=== PATIENT | male | born 1960 | race Caucasian/White ===

== ENCOUNTER → 2016-09-10 | Outpatient (CLI) | payer OTHER ==
[~2016-09-10] MED LIST: ASPIR-LOW81 MG PO; ATORVASTATIN CA80 MG PO; CLOPIDOGREL75 MG PO; KEFLEX500 MG PO; LISINOPRIL5 MG PO; LOPRESSOR25 MG PO; NAPROXEN500 MG PO; NICOTINE PATCH1 EAC2 TD; NITROSTAT0.4 MG SL; PERCOCET 5/31 TABLET PO; SILVADENE20 GM TP
== END | disposition home or self-care (01) ==
LOC: RES 07:46
DX: Z02.71 Encounter for disability determination (principal)
CPT/HCPCS: 94010; 94729; 94760

== ENCOUNTER 2017-02-15 11:54 | Emergency (ER) | payer OTHER ==
[~2017-02-15] VITALS: Ht 180.3 cm; Wt 77.0 kg
[2017-02-15 13:20] LABS: HEMATOCRIT 46.2 % (38.0-50.0); MCH 31.7 PG (29.0-34.0); MCHC 32.7 G/DL (30.0-36.0); MCV 96.9 FL (86-99); MEAN PLAT.VOLUME 9.9 uM^3 (9.0-12.4); PLATELET COUNT 178 K/uL (156-360); RED BLOOD COUNT 4.77 M/uL (4.00-5.50); WHITE BLOOD COUNT 8.4 K/uL (4.1-10.2)
[2017-02-15 13:30] LABS: CHLORIDE 107 mEq/L (99-109); POTASSIUM 3.9 mEq/L (3.7-5.4); SODIUM 141 mEq/L (136-147)
[2017-02-15 13:32] LABS: GLUCOSE 93 mg/dL (70-99)
[2017-02-15 13:33] LABS: ANION GAP 14 MEQ/L (2-14)
[2017-02-15 13:34] LABS: TOTAL BILIRUBIN 0.5 mg/dL (0.0-1.0)
[2017-02-15 13:36] LABS: ALKALINE PHOSPHATASE 88 IU/L (3-129); GFR ESTIMATE (CALCULATED) > 59 mL/min/
[2017-02-15 13:37] LABS: UREA NITROGEN (BUN) 13 mg/dL (9-23)
[2017-02-15] MEDS ORDERED: AUGMENTIN875 MG PO (15:12)
[2017-02-15] MEDS ORDERED: NORCO 5/3251 TABLET PO (15:12)
[2017-02-15 15:25] VITALS: BP 126/77
== END 2017-02-15 15:26 | disposition home or self-care (01) ==
LOC: EME 11:54
PROVIDERS: Physician Assistant
DX: M50.30 Other cervical disc degeneration, unspecified cervical region (principal); J01.00 Acute maxillary sinusitis, unspecified; I10 Essential (primary) hypertension; I25.2 Old myocardial infarction; Z79.82 Long term (current) use of aspirin; F17.200 Nicotine dependence, unspecified, uncomplicated
CPT/HCPCS: 70491; 80053; 85027; 99281; 99284; J3010; J7030

== ENCOUNTER 2017-06-14 17:00 | Emergency (ER) | payer OTHER ==
[~2017-06-14] VITALS: Ht 180.3 cm; Wt 77.5 kg
[~2017-06-14 17:00] MED LIST changes: +AUGMENTIN875 MG PO; +NORCO 5/3251 TABLET PO
[2017-06-14] MEDS ORDERED: MOTRIN600 MG PO (22:12)
[2017-06-14 22:20] VITALS: BP 129/88
== END 2017-06-14 22:21 | disposition home or self-care (01) ==
LOC: EME 17:00
DX: F10.129 Alcohol abuse with intoxication, unspecified (principal); R51 Headache; G89.29 Other chronic pain; I25.2 Old myocardial infarction; F32.9 Major depressive disorder, single episode, unspecified; Z95.5 Presence of coronary angioplasty implant and graft; F17.200 Nicotine dependence, unspecified, uncomplicated
CPT/HCPCS: 99281; 99283